=== PATIENT | female | born 1970 | race Two or more races ===

== ENCOUNTER 2016-07-23 13:48 | Observation (INO) | payer BC ==
[~2016-07-23 13:48] MED LIST: ROCURONIUM BROMIDE INJ 50 MG/5 ML VIAL IV ONE; SUCCINYLCHOLINE CHLORIDE INJ 200 MG/10 ML VIAL ONE
[2016-07-23] MEDS ORDERED: ONDANSETRON 4 MG TAB.RAPDIS PO ONE (14:13)
[2016-07-23] MEDS ORDERED: OXYCODONE-ACETAMINOPHEN 5-325 MG TABLET PO ONE (14:13)
--- NOTE | 2016-07-23 14:13 | ER Document Report ---
ED Medical Screen (RME) - General Stated Complaint: BACK PAIN Notes: 46 yo female c/o lower back pain since last night. + hx/o gallbladder diskinesia. + nausea. feels like pain is related to gallbladder. TRAVEL OUTSIDE OF THE [place] IN LAST 30 DAYS: No - Related Data Allergies/Adverse Reactions: prochlorperazine edisylate [From Compazine] Allergy (Severe, Verified 07/21/13 10:23) prochlorperazine maleate [From Compazine] Allergy (Severe, Verified 07/21/13 10: 23) Past Medical History Pulmonary Medical History: Reports: Hx Asthma Past Surgical History: Reports: Hx Appendectomy, Hx Section - Immunizations Hx Diphtheria, Pertussis, Tetanus Vaccination: Yes - 07/13/2007 Physical Exam - Vital signs Vitals: Temp Pulse Resp BP Pulse Ox 97.9 F 74 16 122/73 100 07/23/16 14:09 07/23/16 14:09 07/23/16 14:09 07/23/16 14:09 07/23/16 14:09 Course - Vital Signs Vital signs: Temp Pulse Resp BP Pulse Ox 97.9 F 74 16 122/73 100 07/23/16 14:09 07/23/16 14:09 07/23/16 14:09 07/23/16 14:09 07/23/16 14:09
[2016-07-23 14:49] LABS: ABSOLUTE EOSINOPHILS # (AUTO) 0.1 10^3/uL (0.0-0.6); ABSOLUTE MONOCYTES (AUTO) 0.6 10^3/uL (0.1-1.4); EOSINOPHILS % (AUTO) 1.6 % (0-6); HEMOGLOBIN 12.4 g/dL (12.0-15.5); RED CELL DISTRIBUTION WIDTH 13.7 % (11.5-14.0); SEGMENTED NEUTROPHILS % (AUTO) 48.5 % (42-78)
[2016-07-23 14:55] LABS: AMORPHOUS SEDIMENT,URINE TRACE /HPF; APPEARANCE,URINE CLOUDY; BILIRUBIN,URINE NEGATIVE (NEGATIVE); GLUCOSE, URINE NEGATIVE (NEGATIVE); KETONES,URINE NEGATIVE (NEGATIVE); LEUKOCYTE ESTERASE,URINE NEGATIVE (NEGATIVE); NITRITE,URINE NEGATIVE (NEGATIVE); PROTEIN,URINE NEGATIVE (NEGATIVE); URINE SPECIFIC GRAVITY 1.024; UROBILINOGEN,URINE NEGATIVE mg/dL (<2.0)
[2016-07-23 14:58] LABS: ABSOLUTE LYMPHOCYTES (AUTO) 2.9 10^3/uL (0.5-4.7); ABSOLUTE NEUT (AUTO) 3.4 10^3/uL (1.7-8.2); BASOPHILS % (AUTO) 0.5 % (0-2); HEMATOCRIT 37.1 % (36.0-47.0); HGB HCT DIFFERENCE 0.1; LYMPHOCYTES % (AUTO) 41.4 % (13-45); MEAN CORPUSCULAR HEMOGLOBIN 29.1 pg (27.0-33.4); MEAN CORPUSCULAR HGB CONC 33.5 g/dL (32.0-36.0); MEAN CORPUSCULAR VOLUME 87 fl (80-97); RED BLOOD COUNT 4.27 10^6/uL (3.72-5.28)
[2016-07-23 15:00] LABS: ALANINE AMINOTRANSFERASE 21 U/L (9-52); ALBUMIN 3.6 g/dL (3.5-5.0); ALKALINE PHOSPHATASE 85 U/L (38-126); ANION GAP 10 (5-19); ASPARTATE AMINO TRANSFERASE 21 U/L (14-36); BILIRUBIN,TOTAL 0.2 mg/dL (0.2-1.3); BLOOD UREA NITROGEN 11 mg/dL (7-20); CALCIUM 9.1 mg/dL (8.4-10.2); CARBON DIOXIDE 28 mmol/L (22-30); CHLORIDE 104 mmol/L (98-107); CREATININE RESULT 0.74 mg/dL (0.52-1.25); GLUCOSE 103 mg/dL (75-110); LIPASE 177.2 U/L (23-300); POTASSIUM 3.9 mmol/L (3.6-5.0); SODIUM 142.2 mmol/L (137-145); TOTAL PROTEIN 6.9 g/dL (6.3-8.2)
--- NOTE | 2016-07-23 15:55 | ER Document Report ---
ED General - General Chief Complaint: Back Pain Stated Complaint: BACK PAIN Time seen by provider: 15:52 Notes: This is a 46-year-old female with a history of IBS that presents today with a 3 month history of right-sided abdominal pain with radiation to the back. She states that on 06/24/2016 she was diagnosed with biliary dyskinesis from a HIDA scan. Ejection fraction was 3.5%. She has an appointment scheduled this coming Thursday on the for a cholecystectomy. Admits to nausea denies vomiting fever chills headache. Pain is a dull cramp that is constant 10 out of 10 and is worse after meals. She states that the pain has been getting worse. TRAVEL OUTSIDE OF THE [place] IN LAST 30 DAYS: No - Related Data Allergies/Adverse Reactions: prochlorperazine edisylate [From Compazine] Allergy (Severe, Verified 07/23/16 14:13) prochlorperazine maleate [From Compazine] Allergy (Severe, Verified 07/23/16 14: 13) Home Medications: Current Home Medications Etonogestrel/Ethinyl Estradiol [Nuvaring Vaginal Ring] 1 vag ring PV Q28D [History] Hyoscyamine Sulfate [Hyoscyamine Sulfate ER] 0.375 mg PO Q12 07/23/16 [History] Ranitidine HCl [Zantac 75 mg Tablet] 75 mg PO DAILYP PRN 07/23/16 [History] Past Medical History - General Information source: Patient - Social History Smoking Status: Unknown if Ever Smoked Family History: Reviewed & Not Pertinent Patient has suicidal ideation: No Patient has homicidal ideation: No Pulmonary Medical History: Reports: Hx Asthma Renal/ Medical History: Denies: Hx Peritoneal Dialysis Past Surgical History: Reports: Hx Appendectomy, Hx Section - Immunizations Hx Diphtheria, Pertussis, Tetanus Vaccination: Yes - 07/13/2007 Review of Systems - Review of Systems Constitutional: denies: Chills, Fever EENT: No symptoms reported Cardiovascular: denies: Chest pain, Palpitations Respiratory: denies: Hurts to breathe Gastrointestinal: See HPI Genitourinary: denies: Burning, Dysuria Musculoskeletal: No symptoms reported Skin: No symptoms reported Hematologic/Lymphatic: No symptoms reported Neurological/Psychological: No symptoms reported Physical Exam - Vital signs Vitals: Temp Pulse Resp BP Pulse Ox 97.9 F 74 16 122/73 100 07/23/16 14:09 07/23/16 14:09 07/23/16 14:09 07/23/16 14:09 07/23/16 14:09 - General General appearance: Appears well, Alert In distress: Mild - HEENT Head: Normocephalic, Atraumatic Eyes: Normal Conjunctiva: Normal. No: Icteric - Respiratory Respiratory status: No respiratory distress Breath sounds: Normal. No: Rales, Rhonchi, Stridor, Wheezing - Cardiovascular Rhythm: Regular Heart sounds: Normal auscultation - Abdominal Inspection: Normal Distension: No distension Bowel sounds: Normal Tenderness: Tender - Right upper quadrant and right flank to moderate palpation - Back Back: No: CVA tenderness - Extremities General upper extremity: Normal inspection, Normal ROM General lower extremity: Normal inspection, Normal ROM - Neurological Cognition: Normal. No: Confused - Psychological Associated symptoms: Normal affect, Normal mood - Skin Skin Temperature: Warm Skin Moisture: Dry Skin Color: Normal Course - Re-evaluation Re-evalutation: 07/23/16 16:52 Dr. Whitney was consulted. Surgery was advised. I spoke with the patient, and gave her multiple opportunities to ask questions. - Vital Signs Vital signs: Temp Pulse Resp BP Pulse Ox 97.3 F 80 16 118/72 96 07/23/16 22:15 07/23/16 22:15 07/23/16 22:15 07/23/16 22:15 07/23/16 22:15 - Laboratory Result Diagrams: 07/23/16 14:18 07/23/16 14:18 Discharge - Discharge Clinical Impression: Gallbladder attack Condition: Stable Disposition: ADMITTED INPATIENT Admitting Provider: Surgicalist Unit Admitted: Surgical Floor
[2016-07-23] MEDS ORDERED: RINGERS SOLUTION,LACTATED 1,000 ML IV PRN ×2 (17:56→21:04)
[2016-07-23] MEDS ORDERED: CEFAZOLIN INJ 1 GM VIAL ONE (17:59)
[2016-07-23] MEDS ORDERED: CEFAZOLIN 2 GM/D5W RTU 2 GM/50 ML RTUPB IV ONE (18:30)
[2016-07-23] MEDS ORDERED: FENTANYL CITRATE INJ/PF 100 MCG/2 ML AMPUL ONE ×2 (18:34→20:32)
[2016-07-23] MEDS ORDERED: PROPOFOL INJ 200 MG/20 ML VIAL IV ONE (18:35)
[2016-07-23] MEDS ORDERED: MORPHINE SULFATE 10 MG/ML INJ ONE (18:35)
[2016-07-23] MEDS ORDERED: DEXAMETHASONE SOD PHOSPHATE INJ 4 MG/1 ML VIAL ONE (18:35)
[2016-07-23] MEDS ORDERED: MIDAZOLAM 2 MG/2 ML INJ ONE (18:35)
[2016-07-23] MEDS ORDERED: ONDANSETRON HCL INJ/PF 4 MG/2 ML SDV ONE (18:35)
[2016-07-23] MEDS ORDERED: LIDOCAINE 1% INJ-PF (10 MG/ML) 30 ML SDV ONE (18:41)
[2016-07-23] MEDS ORDERED: BUPIVACAINE HCL 0.25% /EPINEPHRINE INJ/PF 30 ML SDV ONE (18:41)
--- NOTE | 2016-07-23 18:47 | PDOC H&P ---
History of Present Illness Admission Date/PCP: 07/23/16 17:50 CARMEN CISNEROS History of Present Illness: NICOLA HENRY is a 46 year old female, originally from [place], who presents with severe right upper quadrant pain. Her first bout was 2.5 months ago. She awoke in the middle the night to 10/10 right upper quadrant pain. The pain was sharp and burning. The pain was not accompanied by other symptoms. The pain decreased in severity. She visited her primary care office where gallbladder disease was suspected. An ultrasound was done at an outside institution which was inconclusive. The patient continued to experience symptoms over the next several weeks. She had more bouts and never completely attained relief. She was sent for HIDA scan on 06/24/2016. HIDA scan showed an ejection fraction of 3%. Biliary dyskinesia was diagnosed. She was given referral to see a surgeon on 07/29/2016, this coming week. However, she continued to have increasingly severe bouts. She now reports that almost every time she eats, and sometimes even drinks water, she will have an exacerbation of her baseline right upper quadrant pain. The exacerbation will be 10/10, burning. The pain radiates to her back. The pain extends towards her epigastrium. She recently has been unable sleep on her left side. Her baseline bowel pattern is borderline constipation, but recently she's had diarrhea. She has experienced heartburn and IBS in the past but describes this pain and constellation of symptoms as different from her heartburn and IBS. She has tried Zantac and Tylenol without relief. Review of systems is positive for leg swelling during a trip to [place] and for several months afterwards, lasting from September until April 2016. She also reports anxiety, mostly related to her increasing right upper quadrant pain. Past Medical History Pulmonary Medical History: Reports: Asthma, Bronchitis, Pneumonia Endocrine Medical History: Reports: Other - Prediabetic GI Medical History: Reports: Gastroesophageal Reflux Disease, Peptic Ulcer Disease - 2000, Other - IBS Past Surgical History Past Surgical History: Reports: Appendectomy, Section Social History Information Source: Patient Lives with: Family Smoking Status: Never Smoker Frequency of Alcohol Use: Rare Hx Recreational Drug Use: No Drugs: None Hx Prescription Drug Abuse: No Family History Family History: DM, Hyperlipidemia, Hypertension, Malignancy Parental Family History Reviewed: Yes Children Family History Reviewed: Yes Sibling(s) Family History Reviewed.: Yes Medication/Allergy Home Medications: Etonogestrel/Ethinyl Estradiol [Nuvaring Vaginal Ring] 1 vag ring PV Q28D Hyoscyamine Sulfate [Hyoscyamine Sulfate ER] 0.375 mg PO Q12 07/23/16 Ranitidine HCl [Zantac 75 mg Tablet] 75 mg PO DAILYP PRN 07/23/16 Allergies/Adverse Reactions: prochlorperazine edisylate [From Compazine] Allergy (Severe, Verified 07/23/16 14:13) prochlorperazine maleate [From Compazine] Allergy (Severe, Verified 07/23/16 14: 13) Review of Systems All systems: reviewed and no additional remarkable complaints except as stated Physical Exam Vital Signs: Temp Pulse Resp BP Pulse Ox 98.6 F 81 18 122/72 99 07/23/16 18:11 07/23/16 18:11 07/23/16 18:11 07/23/16 18:11 07/23/16 18:11 General appearance: PRESENT: no acute distress Head exam: PRESENT: normocephalic Eye exam: PRESENT: EOMI Mouth exam: PRESENT: neck supple Neck exam: ABSENT: JVD, lymphadenopathy, tenderness, thyromegaly Respiratory exam: PRESENT: clear to auscultation renu Cardiovascular exam: PRESENT: RRR GI/Abdominal exam: PRESENT: Espinoza's sign, soft, tenderness. ABSENT: distended , guarding, hernia, rebound Extremities exam: ABSENT: pedal edema Neurological exam: PRESENT: alert, oriented to person, oriented to place, oriented to time, oriented to situation Psychiatric exam: PRESENT: appropriate affect, normal mood Skin exam: ABSENT: jaundice, rash Results Laboratory Results: WBC 7, hemoglobin 12.4, platelets 209. Sodium 142, potassium 3.9, chloride 104 , bicarbonate 28, BUN 11, creatinine 0.74, glucose 103. CMP normal. Lipase within normal limits. Impressions: Reviewed her HIDA scan from 06/24/2017 at [facility]. Ejection fraction 3%. Assessment & Plan - Diagnosis (1) Biliary dyskinesia Is this a current diagnosis for this admission?: YesPlan: We discussed laparoscopic cholecystectomy with cholangiogram in detail. Questions were answered. We discussed the risks, benefits and alternatives including , heart attack, stroke, blood clots in the legs, blood clots in lungs, pneumonia, bleeding, infection, hernia, bile leak, failure of symptoms to resolve, long-term diarrhea, damage to surrounding structures such as bladder , bowels, blood vessels or bile duct resulting in serious long-term health issues. We discussed the possibility of retained stone with need for further procedure such as ERCP. Understands and wishes to proceed. (2) IBS (irritable bowel syndrome) Qualifiers: Irritable bowel syndrome type: with both diarrhea and constipation Qualified Code(s): K58.2 - Mixed irritable bowel syndrome Is this a current diagnosis for this admission?: Yes
[2016-07-23] MEDS ORDERED: DIPHENHYDRAMINE HCL 50 MG/ML VIAL ONE (19:12)
[2016-07-23] MEDS ORDERED: LIDOCAINE 1% INJ-PF (10 MG/ML) 30 ML SDV INJ ONE (19:20)
[2016-07-23] MEDS ORDERED: BUPIVACAINE HCL 0.25% /EPINEPHRINE INJ/PF 30 ML SDV INJ ONE (19:21)
[2016-07-23] MEDS ORDERED: FENTANYL CITRATE INJ/PF 100 MCG/2 ML AMPUL IV PRN ×3 (20:23)
[2016-07-23] MEDS ORDERED: DIPHENHYDRAMINE HCL 50 MG/ML VIAL IV PRN (20:23)
[2016-07-23] MEDS ORDERED: ONDANSETRON HCL INJ/PF 4 MG/2 ML SDV IV PRN (20:59)
--- NOTE | 2016-07-23 20:59 | Operative Report ---
Operative Report DATE OF SURGERY: 07/23/16 PREOPERATIVE DIAGNOSIS: Biliary dyskinesia POSTOPERATIVE DIAGNOSIS: Biliary dyskinesia OPERATION: Laparoscopic cholecystectomy with cholangiogram SURGEON: LOUANN ELLIS ANESTHESIA: GA TISSUE REMOVED OR ALTERED: Gallbladder COMPLICATIONS: None noted ESTIMATED BLOOD LOSS: minimal PROCEDURE: The patient was brought to the operative suite and placed supine on the OR table. Timeout was performed. Antibiotics were administered. Padding and positioning was appropriate. The patient was induced, intubated and maintained on general endotracheal anesthesia throughout the procedure. Patient was prepped and draped in the normal sterile fashion. The skin above the umbilicus was infiltrated with local anesthetic. A 5 mm incision was made. A [place] and [place] were used to dissect down to the level of the fascia, grasped the fascia and elevate it. The Veress needle was placed. Satisfactory water drop test was performed. Low flow insufflation was connected and yielded low opening pressure. Insufflation was advanced to high flow and pneumoperitoneum of 15 mmHg was obtained and maintained with procedure. Trocar and camera were placed through this incision confirming entry into the abdominal cavity without incident. Next the 11 mm epigastric and the two 5 mm right subcostal trochars were placed in the normal location and fashion under direct visualization, after infiltration with local anesthetic. Instruments were introduced. The abdominal cavity was surveyed. There were minimal omental adhesions just inferior to the umbilicus. There were minimal adhesions to the gallbladder which were taken down with a combination of electrocautery and blunt dissection. The fundus of the gallbladder was elevated over the liver edge. The dissection the gallbladder began on the lateral aspect. Dissection continued down to the triangle of Calot. The cystic artery and the cystic duct were dissected out and seen to be clearly entering the gallbladder with no obscuration. The cystic duct was clipped adjacent to the gallbladder. A ductotomy was made. A cholangiocatheter was inserted. A cholangiogram was performed showing good filling of the biliary tree proximally and distally on down into the duodenum with no filling defects. The cholangiocatheter was removed. The cystic duct was clipped 3 times proximally and divided between clips. The cystic artery was clipped twice proximally and once distally consult gallbladder and divided between the clips. The gallbladder was removed from the gallbladder fossa with hook electrocautery. It was placed in an Endo Catch bag and removed through the epigastric trocar site. It was sent to pathology for further analysis. The field was irrigated and suctioned. The field was intact with no leakage of bile or blood. Clips were in place. The abdominal cavity was surveyed and was unremarkable. Trocar sites were infiltrated with more local anesthetic. Pneumoperitoneum was released. Trochars were removed. Incisions were closed at the level of the skin with 4-0 Monocryl. The closed incisions were dressed Dermabond glue. All lap needle sponge counts were correct. The patient tolerated procedure well and was taken recovery in stable condition.
[2016-07-23] MEDS ORDERED: ENOXAPARIN SODIUM INJ 40 MG/0.4 ML DISP.SYRIN SUBCUT ONE (21:30)
[2016-07-24] MEDS: HYDROCODONE/ACETAMINOPHEN 5-325 MG TABLET PO PRN ×3 (05:19→15:02)
[2016-07-24] MEDS: ENOXAPARIN SODIUM INJ 40 MG/0.4 ML DISP.SYRIN SUBCUT SCH (08:27)
[2016-07-24] MEDS: DOCUSATE SODIUM 100 MG CAPSULE PO SCH ×2 (09:31→17:09)
--- NOTE | 2016-07-24 10:15 | PDOC PROGRESS REPORT ---
Subjective Progress Note for:: 07/24/16 Subjective:: Still having right upper quadrant abdominal pain. Not relieved with by mouth pain medications no nausea or vomiting. Tolerated diet. Physical Exam Vital Signs: Temp Pulse Resp BP Pulse Ox 98.2 F 62 16 106/62 99 07/24/16 07:31 07/24/16 07:31 07/24/16 07:31 07/24/16 07:31 07/24/16 07:31 Intake & Output 07/23/16 07/24/16 07/25/16 06:59 06:59 06:59 Intake Total 530 Output Total 800 Balance -270 Weight 86.2 kg General appearance: PRESENT: no acute distress Respiratory exam: PRESENT: clear to auscultation renu Cardiovascular exam: PRESENT: RRR GI/Abdominal exam: PRESENT: other - Soft, nondistended, wounds clean dry and intact. Focal tenderness in the right upper quadrant without peritoneal signs. Results Impressions: Cholangiogram 07/23/16 00:00 IMPRESSION: INTRAOPERATIVE CHOLANGIOGRAM. Fluoroscopy 07/23/16 00:00 IMPRESSION: INTRAOPERATIVE CHOLANGIOGRAM. Assessment & Plan - Diagnosis (1) Biliary dyskinesia Is this a current diagnosis for this admission?: YesPlan: Status post laparoscopic cholecystectomy the patient still has right upper quadrant abdominal pain and tenderness. Will place her on morphine for pain control. Will check the laboratory studies. We'll keep her in the hospital until she is feeling better.
[2016-07-24] MEDS ORDERED: MORPHINE SULFATE 10 MG/ML INJ IV PRN (10:17)
[2016-07-24 11:38] LABS: HEMATOCRIT 34.9 % (36.0-47.0); HEMOGLOBIN 11.6 g/dL (12.0-15.5); HGB HCT DIFFERENCE -0.1; MEAN CORPUSCULAR HEMOGLOBIN 29.1 pg (27.0-33.4); MEAN CORPUSCULAR HGB CONC 33.1 g/dL (32.0-36.0); MEAN CORPUSCULAR VOLUME 88 fl (80-97); RED BLOOD COUNT 3.97 10^6/uL (3.72-5.28); RED CELL DISTRIBUTION WIDTH 13.6 % (11.5-14.0); WHITE BLOOD COUNT 9.2 10^3/uL (4.0-10.5)
[2016-07-24 11:50] LABS: ALANINE AMINOTRANSFERASE 39 U/L (9-52); ALBUMIN 3.3 g/dL (3.5-5.0); ALKALINE PHOSPHATASE 76 U/L (38-126); ANION GAP 8 (5-19); ASPARTATE AMINO TRANSFERASE 50 U/L (14-36); BILIRUBIN,TOTAL 0.2 mg/dL (0.2-1.3); BLOOD UREA NITROGEN 9 mg/dL (7-20); CALCIUM 8.7 mg/dL (8.4-10.2); CARBON DIOXIDE 28 mmol/L (22-30); CHLORIDE 105 mmol/L (98-107); CREATININE RESULT 0.69 mg/dL (0.52-1.25); GLUCOSE 91 mg/dL (75-110); LIPASE 88.3 U/L (23-300); POTASSIUM 3.6 mmol/L (3.6-5.0); SODIUM 141.3 mmol/L (137-145); TOTAL PROTEIN 6.3 g/dL (6.3-8.2)
[2016-07-24] MEDS ORDERED: DIPHENHYDRAMINE HCL 50 MG CAPSULE PO PRN (13:50)
[2016-07-25] MEDS: HYDROCODONE/ACETAMINOPHEN 5-325 MG TABLET PO PRN (05:16)
[2016-07-25] MEDS: ENOXAPARIN SODIUM INJ 40 MG/0.4 ML DISP.SYRIN SUBCUT SCH (08:17)
[2016-07-25] MEDS: DOCUSATE SODIUM 100 MG CAPSULE PO SCH (12:03)
[2016-07-25 13:09] VITALS: BP 111/58
--- NOTE | 2016-07-25 18:43 | DISCHARGE SUMMARY E ---
Discharge Summary NAME: NICOLA HENRY : 1970 AGE: 46Y ADMITTED: 07/23/2016 DISCHARGED: 07/25/2016 DISCHARGE DIAGNOSIS: Status post laparoscopic cholecystectomy for cholelithiasis causing biliary colic. HISTORY AND HOSPITAL COURSE: This 46-year-old female presented to the emergency room with abdominal pain and was found to have right upper quadrant tenderness. The patient underwent an ultrasound which revealed cholelithiasis with biliary colic. The patient was admitted to the hospital and then underwent laparoscopic cholecystectomy on 07/23/2016. The patient's postop course was uneventful. She did continue to have right upper quadrant pain postop that prevented her discharge at this time. However, her laboratory data was within normal limits and her abdominal pain continued to improve. On 07/25/2016, the patient was afebrile and vital signs were stable. The patient has at this time no right upper quadrant tenderness whatsoever and is doing quite well. DISPOSITION: The patient is now discharged home and is to follow up with [facility] as an outpatient in 4 days. DICTATING PHYSICIAN: KARMEN SHI M.D. [id number] PHY#: [id number] ID: [id number] JOB#: [id number] ACCT: [id number] cc:Mae BABIN FNP >
== END 2016-07-25 16:46 | disposition home or self-care (01) ==
LOC: ER 13:48 → EH 17:50 → UNDOADMOB 17:50 → EH 20:59 → 4S 21:15 → EH 21:15
PROC: 0FT44ZZ Resection of Gallbladder, Percutaneous Endoscopic Approach (ICD-10-PCS; principal; 2016-07-23 19:00)
DX: K80.50 Calculus of bile duct without cholangitis or cholecystitis without obstruction (principal); K82.8 Other specified diseases of gallbladder; J45.909 Unspecified asthma, uncomplicated; R73.03 Prediabetes; K21.9 Gastro-esophageal reflux disease without esophagitis; Z83.3 Family history of diabetes mellitus; Z83.42 Family history of familial hypercholesterolemia; Z82.49 Family history of ischemic heart disease and other diseases of the circulatory system; Z80.9 Family history of malignant neoplasm, unspecified
CPT/HCPCS: 99285; 96365; 96368; 36415 ×2; 83690 ×2; 85025; 85027; 80053 ×2; 81001; 88304 ×2; 74300; 94799; 47563; G0378 ×4; Q9967; J2250; J3490 ×3; J1100; J1200; S0119; J3010; J2270 ×2; J1650 ×3; J0330; J2405; J7120; J2704; J0690; 790

== ENCOUNTER 2017-01-27 17:55 | Emergency (ER) | payer BC ==
--- NOTE | 2017-01-27 18:43 | ER Document Report ---
ED Medical Screen (RME) - General Chief Complaint: Leg Pain Stated Complaint: LEFT LEG AND ANKLE PAIN, SWELLING Time Seen by Provider: 01/27/17 18:40 Information source: Patient Notes: Bilateral leg pain and swelling, left much greater than right. She states for around 1 week. She states also some intermittent chest pain with shortness of breath. She denies any recent trips or travel. She denies any nausea, vomiting , or fevers. Denies any weakness or numbness of her legs. Patient does state that she started to work at around 2 weeks ago. TRAVEL OUTSIDE OF THE [place] IN LAST 30 DAYS: No - Related Data Allergies/Adverse Reactions: prochlorperazine edisylate [From Compazine] Allergy (Severe, Verified 01/27/17 18:12) prochlorperazine maleate [From Compazine] Allergy (Severe, Verified 01/27/17 18: 12) Past Medical History Pulmonary Medical History: Reports: Hx Asthma, Hx Bronchitis, Hx Pneumonia Renal/ Medical History: Denies: Hx Peritoneal Dialysis GI Medical History: Reports: Hx Gastroesophageal Reflux Disease Past Surgical History: Reports: Hx Appendectomy, Hx Section - Immunizations Hx Diphtheria, Pertussis, Tetanus Vaccination: Yes - 07/13/2007 Physical Exam - Vital signs Vitals: Temp Pulse Resp BP Pulse Ox 98.1 F 89 15 133/85 H 98 01/27/17 18:12 01/27/17 18:12 01/27/17 18:12 01/27/17 18:12 01/27/17 18:12 Course - Vital Signs Vital signs: Temp Pulse Resp BP Pulse Ox 98.1 F 89 15 133/85 H 98 01/27/17 18:12 01/27/17 18:12 01/27/17 18:12 01/27/17 18:12 01/27/17 18:12
[2017-01-27 19:14] LABS: ABSOLUTE EOSINOPHILS # (AUTO) 0.1 10^3/uL (0.0-0.6); ABSOLUTE LYMPHOCYTES (AUTO) 2.4 10^3/uL (0.5-4.7); ABSOLUTE MONOCYTES (AUTO) 0.7 10^3/uL (0.1-1.4); ABSOLUTE NEUT (AUTO) 4.3 10^3/uL (1.7-8.2); BASOPHILS % (AUTO) 0.5 % (0-2); EOSINOPHILS % (AUTO) 1.6 % (0-6); HEMOGLOBIN 12.2 g/dL (12.0-15.5); HGB HCT DIFFERENCE -1.4; LYMPHOCYTES % (AUTO) 31.6 % (13-45); MEAN CORPUSCULAR HGB CONC 32.2 g/dL (32.0-36.0); MEAN CORPUSCULAR VOLUME 90 fl (80-97); MONOCYTES % (AUTO) 9.6 % (3-13); RED BLOOD COUNT 4.22 10^6/uL (3.72-5.28); RED CELL DISTRIBUTION WIDTH 13.7 % (11.5-14.0); SEGMENTED NEUTROPHILS % (AUTO) 56.7 % (42-78); WHITE BLOOD COUNT 7.5 10^3/uL (4.0-10.5)
--- NOTE | 2017-01-27 19:20 | RADIOLOGY REPORT (SQ) ---
EXAM DESCRIPTION: CHEST PA/LAT COMPLETED DATE/TIME: 01/27/2017 7:04 pm REASON FOR STUDY: Chest pain COMPARISON: September 2010 EXAM PARAMETERS: NUMBER OF VIEWS: two views TECHNIQUE: Digital Frontal and Lateral radiographic views of the chest acquired. RADIATION DOSE: NA LIMITATIONS: none FINDINGS: LUNGS AND PLEURA: No opacities, masses or pneumothorax. No pleural effusion. MEDIASTINUM AND HILAR STRUCTURES: No masses or contour abnormalities. HEART AND VASCULAR STRUCTURES: Heart normal size. No evidence for failure. BONES: No acute findings. HARDWARE: None in the chest. OTHER: No other significant finding. IMPRESSION: NO SIGNIFICANT RADIOGRAPHIC FINDING IN THE CHEST. TECHNICAL DOCUMENTATION: JOB ID: [id number]- All Rights Reserved
[2017-01-27 19:21] LABS: APPEARANCE,URINE SLIGHTLY-CLOUDY; BILIRUBIN,URINE NEGATIVE (NEGATIVE); GLUCOSE, URINE NEGATIVE (NEGATIVE); KETONES,URINE NEGATIVE (NEGATIVE); LEUKOCYTE ESTERASE,URINE NEGATIVE (NEGATIVE); NITRITE,URINE NEGATIVE (NEGATIVE); PROTEIN,URINE NEGATIVE (NEGATIVE); UROBILINOGEN,URINE NEGATIVE mg/dL (<2.0)
[2017-01-27 19:36] LABS: ALANINE AMINOTRANSFERASE 22 U/L (9-52); ALBUMIN 3.7 g/dL (3.5-5.0); ALKALINE PHOSPHATASE 101 U/L (38-126); ANION GAP 9 (5-19); ASPARTATE AMINO TRANSFERASE 19 U/L (14-36); BILIRUBIN,DIRECT 0.2 mg/dL (0.0-0.4); BILIRUBIN,TOTAL 0.3 mg/dL (0.2-1.3); BLOOD UREA NITROGEN 10 mg/dL (7-20); CALCIUM 8.6 mg/dL (8.4-10.2); CARBON DIOXIDE 26 mmol/L (22-30); CHLORIDE 105 mmol/L (98-107); CREATININE RESULT 0.66 mg/dL (0.52-1.25); GLUCOSE 90 mg/dL (75-110); POTASSIUM 4.1 mmol/L (3.6-5.0); SODIUM 139.5 mmol/L (137-145); TOTAL PROTEIN 7.2 g/dL (6.3-8.2)
[2017-01-27 19:47] LABS: TROPONIN I < 0.012 ng/mL
--- NOTE | 2017-01-27 21:25 | ER Document Report ---
ED Psych Disorder / Suicide - General Chief Complaint: Leg Pain Stated Complaint: LEFT LEG AND ANKLE PAIN, SWELLING Time Seen by Provider: 01/27/17 18:40 TRAVEL OUTSIDE OF THE [place] IN LAST 30 DAYS: No - Related Data Allergies/Adverse Reactions: prochlorperazine edisylate [From Compazine] Allergy (Severe, Verified 01/27/17 18:12) prochlorperazine maleate [From Compazine] Allergy (Severe, Verified 01/27/17 18: 12) Past Medical History - General Information source: Patient - Social History Smoking Status: Never Smoker Frequency of alcohol use: Occasional Drug Abuse: None Family History: Reviewed & Not Pertinent Patient has suicidal ideation: No Patient has homicidal ideation: No Pulmonary Medical History: Reports: Hx Asthma, Hx Bronchitis, Hx Pneumonia Renal/ Medical History: Denies: Hx Peritoneal Dialysis GI Medical History: Reports: Hx Gastroesophageal Reflux Disease Past Surgical History: Reports: Hx Appendectomy, Hx Section - Immunizations Hx Diphtheria, Pertussis, Tetanus Vaccination: Yes - 07/13/2007 Physical Exam - Vital signs Vitals: Temp Pulse Resp BP Pulse Ox 98.1 F 89 15 133/85 H 98 01/27/17 18:12 01/27/17 18:12 01/27/17 18:12 01/27/17 18:12 01/27/17 18:12 Course - Vital Signs Vital signs: Temp Pulse Resp BP Pulse Ox 98.1 F 89 15 133/85 H 98 01/27/17 18:12 01/27/17 18:12 01/27/17 18:12 01/27/17 18:12 01/27/17 18:12 - Laboratory Result Diagrams: 01/27/17 18:58 01/27/17 18:58 Laboratory results interpreted by me: 01/27/17 18:58 Urine Blood SMALL H
--- NOTE | 2017-01-27 21:30 | ER Document Report ---
ED Extremity Problem, Lower - General Mode of Arrival: Ambulatory Information source: Patient TRAVEL OUTSIDE OF THE [place] IN LAST 30 DAYS: No <JOSE CARVER - Last Filed: 01/27/17 22:09> <JENNA AWAN - Last Filed: 01/28/17 00:00> - General Chief Complaint: Leg Pain Stated Complaint: LEFT LEG AND ANKLE PAIN, SWELLING Time Seen by Provider: 01/27/17 18:40 Notes: Patient is a 46-year-old female who presents to the emergency department today with complaints of left calf and ankle swelling and pain. Patient states that she "tried to exercise last week" but she does not remember any injury or trauma to the leg. Patient states she has had something similar to this in the past and she was told it was "heat edema". (JOSE CARVER) - Related Data Allergies/Adverse Reactions: prochlorperazine edisylate [From Compazine] Allergy (Severe, Verified 01/27/17 18:12) prochlorperazine maleate [From Compazine] Allergy (Severe, Verified 01/27/17 18: 12) Past Medical History - General Information source: Patient - Social History Smoking Status: Never Smoker Cigarette use (# per day): No Frequency of alcohol use: Occasional Drug Abuse: None Lives with: Family Family History: Reviewed & Not Pertinent Patient has suicidal ideation: No Patient has homicidal ideation: No Pulmonary Medical History: Reports: Hx Asthma, Hx Bronchitis, Hx Pneumonia GI Medical History: Reports: Hx Gastroesophageal Reflux Disease Past Surgical History: Reports: Hx Appendectomy, Hx Section - Immunizations Hx Diphtheria, Pertussis, Tetanus Vaccination: Yes - 07/13/2007 <JOSE CAVRER - Last Filed: 01/27/17 22:09> Review of Systems - Review of Systems Constitutional: No symptoms reported EENT: No symptoms reported Cardiovascular: No symptoms reported Respiratory: No symptoms reported Gastrointestinal: No symptoms reported Genitourinary: No symptoms reported Female Genitourinary: No symptoms reported Musculoskeletal: See HPI, Leg swelling - left/ankle Skin: No symptoms reported Hematologic/Lymphatic: No symptoms reported Neurological/Psychological: No symptoms reported -: Yes All other systems reviewed and negative <JOSE CARVER - Last Filed: 01/27/17 22:09> Physical Exam <JOSE CARVER - Last Filed: 01/27/17 22:09> <JENNA AWAN - Last Filed: 01/28/17 00:00> - Vital signs Vitals: Temp Pulse Resp BP Pulse Ox 98.1 F 89 15 133/85 H 98 01/27/17 18:12 01/27/17 18:12 01/27/17 18:12 01/27/17 18:12 01/27/17 18:12 - Notes Notes: Physical Exam: General: Alert, appears well. HEENT: Normocephalic. Atraumatic. PERRL. Extraocular movements intact. Oropharynx clear. Neck: Supple. Non-tender. Respiratory: No respiratory distress. Clear and equal breath sounds bilaterally. Cardiovascular: Regular rate and rhythm. Abdominal: Normal Inspection. Non-tender. No distension. Normal Bowel Sounds. Back: Non-tender. No deformity or step off. Extremities: Moves all four extremities. Upper extremities: Normal inspection. Normal ROM. Lower extremities: Posterior calf tenderness bilaterally. Pain with range of motion. Left Achilles tenderness with palpation. Neurological: Normal cognition. AAOx4. Normal speech. Psychological: Normal affect. Normal Mood. Skin: Warm. Dry. Normal color. (JOSE CARVER) Course - Laboratory Result Diagrams: 01/27/17 18:58 01/27/17 18:58 <MEHULJOSE - Last Filed: 01/27/17 22:09> - Laboratory Result Diagrams: 01/27/17 18:58 01/27/17 18:58 <JENNA AWAN - Last Filed: 01/28/17 00:00> - Re-evaluation Re-evalutation: 01/27/17 23:59 Patient with normal blood work. No evidence for DVT on imaging. Patient symptoms are consistent with strain/tendinitis. Patient is instructed to wear supportive footwear, take NSAIDs, follow-up with PMD, possibly do physical therapy. Stable for discharge. Return if any worsening or concerning symptoms. , The patient is neurovascularly intact at the time of discharge. (JENNA AWAN) - Vital Signs Vital signs: Temp Pulse Resp BP Pulse Ox 98.4 F 79 16 127/75 H 99 01/27/17 21:42 01/27/17 21:42 01/27/17 21:42 01/27/17 21:42 01/27/17 21:42 - Laboratory Laboratory results interpreted by me: 01/27/17 18:58 Urine Blood SMALL H Discharge <JOSE CARVER - Last Filed: 01/27/17 22:09> <JENNA AWAN - Last Filed: 01/28/17 00:00> - Discharge Clinical Impression: Muscle strain, Leg pain, left Condition: Stable Disposition: HOME, SELF-CARE Instructions: Muscle Strain ([facility]), Leg Pain Nonspecific ([facility]) Additional Instructions: Make sure you are wearing supportive footwear. Take Ibuprofen or Naproxen as needed for pain. Please follow-up with your doctor and discuss physical therapy if your pain does not improve. Scribe Attestation: 01/28/17 00:00 I personally performed the services described in the documentation, reviewed and edited the documentation which was dictated to the scribe in my presence, and it accurately records my words and actions. (JENNA AWAN) Scribe Documentation - Scribe Written by Maryibe:: Rufina Allen, 01/27/2017 2154 acting as scribe for :: Christ <JOSE CARVER - Last Filed: 01/27/17 22:09>
[2017-01-27 21:52] VITALS: BP 127/75
--- NOTE | 2017-01-27 22:03 | EKG REPORT ---
SEVERITY:- NORMAL ECG - SINUS RHYTHM : Confirmed by: Ellie Putnam 27-Jan-2017 22:02:45
--- NOTE | 2017-01-28 07:50 | XCELERA REPORT ---
[address] [address] Lower Extremity Venous Evaluation Name: NICOLA HENRY I Age: 46 yrs Gender: Female : 1970 Patient Status: Emergency Patient Location: ER Study Date: 01/27/2017 08:06 PM Procedure: Color flow and duplex imaging of the veins of the left lower extremity as well as the right Common Femoral vein. Reason For Study: PIT; left leg swelling and pain Ordering Physician: KEO NAVA Performed By: Millicent Ray Right Sided Venous Evaluation The right common femoral vein is fully compressible. Spontaneous and phasic flow is present in the right common femoral vein. Left Sided Venous Evaluation Normal vessel filling wall to wall, compression and augmentation as well as Colour flow down to the infrageniculate veins. Critical Findings Called in to Dr Polo at about 1700. Interpretation Summary No duplex evidence of DVT or obstruction in the left lower extremity nor in the right Common Femoral vein. : KEO NAVA > aXnder Ahumada
== END 2017-01-27 21:42 | disposition home or self-care (01) ==
LOC: ER 17:55
DX: T14.8 Other injury of unspecified body region (principal); X58.XXXA Exposure to other specified factors, initial encounter; M79.662 Pain in left lower leg; M25.572 Pain in left ankle and joints of left foot; M25.472 Effusion, left ankle; J45.909 Unspecified asthma, uncomplicated; Z88.8 Allergy status to other drugs, medicaments and biological substances
CPT/HCPCS: 36415; 71020; 80053; 81001; 81025; 83880; 84484; 85025; 93005; 93010; 93971; 99284

== ENCOUNTER 2018-01-29 17:01 | Emergency (ER) | payer BC ==
[2018-01-29] MEDS ORDERED: HYDROCODONE/ACETAMINOPHEN 5-325 MG TABLET PO ONE (18:14)
[2018-01-29] MEDS ORDERED: ONDANSETRON 4 MG TAB.RAPDIS SL ONE (18:14)
--- NOTE | 2018-01-29 18:15 | ER Document Report ---
ED Medical Screen (RME) - General Chief Complaint: Abdominal Pain Stated Complaint: ABDOMINAL PAIN Time Seen by Provider: 01/29/18 17:05 TRAVEL OUTSIDE OF THE [place] IN LAST 30 DAYS: No - HPI Patient complains to provider of: Abdominal pain Notes: 01/29/18 18:14 Patient is a 47-year-old female sent to the emergency room by primary care provider for periumbilical abdominal pain going on for the, she reports some nausea associated with it as well as constipation but denies any vomiting or obstipation - Related Data Allergies/Adverse Reactions: prochlorperazine edisylate [From Compazine] Allergy (Severe, Verified 01/29/18 17:03) prochlorperazine maleate [From Compazine] Allergy (Severe, Verified 01/29/18 17: 03) Past Medical History Pulmonary Medical History: Reports: Hx Asthma, Hx Bronchitis, Hx Pneumonia Renal/ Medical History: Denies: Hx Peritoneal Dialysis GI Medical History: Reports: Hx Gastroesophageal Reflux Disease Past Surgical History: Reports: Hx Appendectomy, Hx Section - Immunizations Hx Diphtheria, Pertussis, Tetanus Vaccination: Yes - 07/13/2007 Physical Exam - Vital signs Vitals: Temp Pulse Resp BP Pulse Ox 98.5 F 78 20 126/77 H 100 01/29/18 17:35 01/29/18 17:35 01/29/18 17:35 01/29/18 17:35 01/29/18 17:35 Course - Vital Signs Vital signs: Temp Pulse Resp BP Pulse Ox 98.5 F 78 20 126/77 H 100 01/29/18 17:35 01/29/18 17:35 01/29/18 17:35 01/29/18 17:35 01/29/18 17:35 Doctor's Discharge - Discharge Referrals: LUL SOSA PA-C [Primary Care Provider] - Follow up as needed
[2018-01-29 19:24] LABS: APPEARANCE,URINE SLIGHTLY-CLOUDY; BILIRUBIN,URINE NEGATIVE (NEGATIVE); COLOR,URINE YELLOW; GLUCOSE, URINE NEGATIVE (NEGATIVE); KETONES,URINE NEGATIVE (NEGATIVE); LEUKOCYTE ESTERASE,URINE NEGATIVE (NEGATIVE); NITRITE,URINE NEGATIVE (NEGATIVE); PROTEIN,URINE NEGATIVE (NEGATIVE); URINE SPECIFIC GRAVITY 1.021; UROBILINOGEN,URINE NEGATIVE mg/dL (<2.0)
[2018-01-29 19:28] LABS: ABSOLUTE EOSINOPHILS # (AUTO) 0.1 10^3/uL (0.0-0.6); ABSOLUTE LYMPHOCYTES (AUTO) 2.8 10^3/uL (0.5-4.7); ABSOLUTE MONOCYTES (AUTO) 0.8 10^3/uL (0.1-1.4); ABSOLUTE NEUT (AUTO) 3.9 10^3/uL (1.7-8.2); BASOPHILS % (AUTO) 0.4 % (0-2); EOSINOPHILS % (AUTO) 1.4 % (0-6); HEMATOCRIT 41.7 % (36.0-47.0); HEMOGLOBIN 13.6 g/dL (12.0-15.5); LYMPHOCYTES % (AUTO) 36.3 % (13-45); MEAN CORPUSCULAR HEMOGLOBIN 29.3 pg (27.0-33.4); MEAN CORPUSCULAR HGB CONC 32.5 g/dL (32.0-36.0); MEAN CORPUSCULAR VOLUME 90 fl (80-97); MONOCYTES % (AUTO) 11.1 % (3-13); PLATELET COUNT 214 10^3/uL (150-450); RED BLOOD COUNT 4.62 10^6/uL (3.72-5.28); RED CELL DISTRIBUTION WIDTH 13.4 % (11.5-14.0); SEGMENTED NEUTROPHILS % (AUTO) 50.8 % (42-78); TOTAL CELLS COUNTED % (AUTO) 100 %; WHITE BLOOD COUNT 7.6 10^3/uL (4.0-10.5)
[2018-01-29 19:39] LABS: ALANINE AMINOTRANSFERASE 30 U/L (9-52); ALBUMIN 4.4 g/dL (3.5-5.0); ALKALINE PHOSPHATASE 100 U/L (38-126); ANION GAP 12 (5-19); ASPARTATE AMINO TRANSFERASE 23 U/L (14-36); BILIRUBIN,DIRECT 0.2 mg/dL (0.0-0.4); BILIRUBIN,TOTAL 0.4 mg/dL (0.2-1.3); BLOOD UREA NITROGEN 9 mg/dL (7-20); CALCIUM 9.3 mg/dL (8.4-10.2); CARBON DIOXIDE 28 mmol/L (22-30); CHLORIDE 104 mmol/L (98-107); GLUCOSE 68 mg/dL (75-110); LIPASE 138.9 U/L (23-300); POTASSIUM 3.9 mmol/L (3.6-5.0); SODIUM 144.2 mmol/L (137-145); TOTAL PROTEIN 7.6 g/dL (6.3-8.2)
--- NOTE | 2018-01-29 21:26 | ER Document Report ---
ED General - General Chief Complaint: Abdominal Pain Stated Complaint: ABDOMINAL PAIN Time Seen by Provider: 01/29/18 17:05 Notes: Patient is a 47 year old female with a past surgical history of a cholecystectomy and appendectomy who presents with several weeks of umbilical pain. She states that this is mostly located to the upper portion of her umbilicus and is noted to be a dull, throbbing, constant pain worsened by moving or standing. She has tried ibuprofen with minimal improvement of the pain. She denies a history of similar symptoms in the past. She has seen her general doctor regarding this concern, was referred for an ultrasound on Thursday but states that the pain has prevented her from sleeping prompting her to come to the emergency department. She denies any vomiting, fever or constitutional symptoms. TRAVEL OUTSIDE OF THE [place] IN LAST 30 DAYS: No - Related Data Allergies/Adverse Reactions: prochlorperazine edisylate [From iGuiders] Allergy (Severe, Verified 01/29/18 17:03) prochlorperazine maleate [From Kiraxazine] Allergy (Severe, Verified 01/29/18 17: 03) Past Medical History - General Information source: Patient - Social History Smoking Status: Never Smoker Frequency of alcohol use: None Drug Abuse: None Lives with: Family Family History: Reviewed & Not Pertinent Patient has suicidal ideation: No Patient has homicidal ideation: No Pulmonary Medical History: Reports: Hx Asthma, Hx Bronchitis, Hx Pneumonia Renal/ Medical History: Denies: Hx Peritoneal Dialysis GI Medical History: Reports: Hx Gastroesophageal Reflux Disease Past Surgical History: Reports: Hx Appendectomy, Hx Section - Immunizations Hx Diphtheria, Pertussis, Tetanus Vaccination: Yes - 07/13/2007 Review of Systems - Review of Systems Notes: Constitutional: Negative for fever. HENT: Negative for sore throat. Eyes: Negative for visual changes. Cardiovascular: Negative for chest pain. Respiratory: Negative for shortness of breath. Gastrointestinal: Positive for abdominal pain Genitourinary: Negative for dysuria. Musculoskeletal: Negative for back pain. Skin: Negative for rash. Neurological: Negative for headaches, weakness or numbness. 10 point ROS negative except as marked above and in HPI. Physical Exam - Vital signs Vitals: Temp Pulse Resp BP Pulse Ox 98.5 F 78 20 126/77 H 100 01/29/18 17:35 01/29/18 17:35 01/29/18 17:35 01/29/18 17:35 01/29/18 17:35 Interpretation: Normal Notes: PHYSICAL EXAMINATION: GENERAL: Well-appearing, well-nourished and in no acute distress. HEAD: Atraumatic, normocephalic. EYES: Pupils equal round and reactive to light, extraocular movements intact, sclera anicteric, conjunctiva are normal. ENT: nares patent, oropharynx clear without exudates. Moist mucous membranes. NECK: Normal range of motion, supple without lymphadenopathy LUNGS: Breath sounds clear to auscultation bilaterally and equal. No wheezes rales or rhonchi. HEART: Regular rate and rhythm without murmurs ABDOMEN: Soft, tenderness to the superior portion of the umbilicus but no other areas of localized tenderness, normoactive bowel sounds. No guarding, no rebound. No masses appreciated. EXTREMITIES: Normal range of motion, no pitting or edema. No cyanosis. NEUROLOGICAL: No focal neurological deficits. Moves all extremities spontaneously and on command. PSYCH: Normal mood, normal affect. SKIN: Warm, Dry, normal turgor, no rashes or lesions noted. Course - Re-evaluation Re-evalutation: 01/29/18 21:23 Patient presents with approximately 1 month of periumbilical pain no different today but not resolving. The patient does have focal tenderness to the superior aspect of the umbilicus. Patient has had an appendectomy and there is a surgical incision scar to the area I anticipate the patient either has scar tissue versus a fat-containing hernia to the area. The patient stood and pared down I am unable to visualize or palpate a hernia. Labs unremarkable. I do not see an indication for CT abdomen pelvis at this point as her clinical history is not concerning for any acute life-threatening pathology. No change in her diagnosed her symptoms over the last 1 month. I have recommended close follow-up with surgery for further evaluation. The remainder of the labs and history is otherwise benign. She has no additional focal abdominal tenderness. Her only every abdominal tenderness is directly to the superior aspect of her umbilicus. At this time will discharge with return precautions and follow-up recommendations. Verbal discharge instructions given a the bedside and opportunity for questions given. Medication warnings reviewed. Patient is in agreement with this plan and has verbalized understanding of return precautions and the need for primary care follow-up in the next 24-72 hours. - Vital Signs Vital signs: Temp Pulse Resp BP Pulse Ox 98.5 F 89 18 115/70 100 01/29/18 17:35 01/29/18 21:50 01/29/18 21:50 01/29/18 21:50 01/29/18 21:50 - Laboratory Result Diagrams: 01/29/18 19:03 01/29/18 19:03 Laboratory results interpreted by me: 01/29/18 01/29/18 17:35 19:03 Glucose 68 L Urine Blood SMALL H Discharge - Discharge Clinical Impression: Umbilical pain Condition: Good Disposition: HOME, SELF-CARE Additional Instructions: You have been seen in the Emergency Department (ED) for abdominal pain. Your evaluation did not identify a clear cause of your symptoms but was generally reassuring. Your symptoms are likely due to either scar tissue or a fat- containing hernia to the area. For your pain: Take ibuprofen 600 mg and acetaminophen 1000 mg every 6 hours together as needed for pain. He may take tramadol only at night for pain that keeps him awake. Please follow-up with the surgeon included in the paperwork at your earliest ability for further evaluation. Return to the ED if your abdominal pain worsens or fails to improve, you develop bloody vomiting, bloody diarrhea, you are unable to tolerate fluids due to vomiting, fever greater than 101, or other symptoms that concern you. Prescriptions: Tramadol HCl 50 mg PO Q6H PRN #6 tablet PRN Reason: Severe Pain Referrals: LUL SOSA PA-C [Primary Care Provider] - Follow up as needed GLORIA MOYA MD [ACTIVE STAFF] - Follow up in 3-5 days
[2018-01-29 21:52] VITALS: BP 115/70
== END 2018-01-29 21:50 | disposition home or self-care (01) ==
LOC: ER 17:01
DX: R10.33 Periumbilical pain (principal); J45.909 Unspecified asthma, uncomplicated; Z90.49 Acquired absence of other specified parts of digestive tract; Z87.19 Personal history of other diseases of the digestive system
CPT/HCPCS: 99284; 36415; 83690; 85025; 80053; 81001; S0119

== ENCOUNTER 2019-02-03 09:06 | Emergency (ER) | payer BC ==
[2019-02-03] MEDS ORDERED: ONDANSETRON HCL INJ/PF 4 MG/2 ML SDV IV ONE (09:45)
--- NOTE | 2019-02-03 09:48 | ER Document Report ---
ED Medical Screen (RME) - General Chief Complaint: Abdominal Pain Stated Complaint: STOMACH PAIN Time Seen by Provider: 02/03/19 09:39 Primary Care Provider: LUL SOSA PA-C [Primary Care Provider] - Follow up as needed Notes: Patient is a 48-year-old female presents to the emergency department for chronic abdominal pain. Patient states "I have had pain ever since I was a little girl." States most recently she has been diagnosed with IBS and started on Linzess. Patient states the Linzess has given her too much diarrhea so she has stopped it. States she is also been taking omeprazole per her doctor's orders. Patient states she attempted to get a referral to gastroenterology but her primary care provider did not call her back which is why she presents to the emergency room. Patient presents with generalized "all over" abdominal pain and nausea. History of an appendectomy and a cholecystectomy. GENERAL: Alert, interacts well. No acute distress. ABDOMEN: Soft, Non-distended. Bowel sounds present in all 4 quadrants. Generalized tenderness all 4 quadrants. I have greeted and performed a rapid initial assessment of this patient. A comprehensive ED assessment and evaluation of the patient, analysis of test results and completion of the medical decision making process will be conducted by additional ED providers. I have specifically instructed the patient or family members with the patient to immediately return to any nursing staff should anything change in the patient's condition or with their chief complaint. This medical record was dictated with voice recognizing software. There may be grammatical, syntax errors that are unintended. TRAVEL OUTSIDE OF THE [place] IN LAST 30 DAYS: No - Related Data Allergies/Adverse Reactions: prochlorperazine edisylate [From Compazine] Allergy (Severe, Verified 01/29/18 17:03) prochlorperazine maleate [From Compazine] Allergy (Severe, Verified 01/29/18 17:03) Past Medical History Pulmonary Medical History: Reports: Hx Asthma, Hx Bronchitis, Hx Pneumonia Renal/ Medical History: Denies: Hx Peritoneal Dialysis GI Medical History: Reports: Hx Gastroesophageal Reflux Disease Past Surgical History: Reports: Hx Appendectomy, Hx Section - Immunizations Hx Diphtheria, Pertussis, Tetanus Vaccination: Yes - 07/13/2007 Physical Exam - Vital signs Vitals: Temp Pulse Resp BP Pulse Ox 97.8 F 92 20 125/73 99 02/03/19 09:13 02/03/19 09:13 02/03/19 09:13 02/03/19 09:13 02/03/19 09:13 Course - Vital Signs Vital signs: Temp Pulse Resp BP Pulse Ox 97.8 F 92 20 125/73 99 02/03/19 09:13 02/03/19 09:13 02/03/19 09:13 02/03/19 09:13 02/03/19 09:13 Doctor's Discharge - Discharge Referrals: LUL SOSA PA-C [Primary Care Provider] - Follow up as needed
[2019-02-03 10:24] LABS: ABSOLUTE EOSINOPHILS # (AUTO) 0.1 10^3/uL (0.0-0.6); ABSOLUTE MONOCYTES (AUTO) 0.3 10^3/uL (0.1-1.4); ABSOLUTE NEUT (AUTO) 3.9 10^3/uL (1.7-8.2); BASOPHILS % (AUTO) 0.5 % (0-2); EOSINOPHILS % (AUTO) 1.6 % (0-6); HEMATOCRIT 38.6 % (36.0-47.0); HEMOGLOBIN 12.7 g/dL (12.0-15.5); LYMPHOCYTES % (AUTO) 31.1 % (13-45); MEAN CORPUSCULAR HEMOGLOBIN 29.3 pg (27.0-33.4); MEAN CORPUSCULAR VOLUME 89 fl (80-97); MONOCYTES % (AUTO) 4.9 % (3-13); PLATELET COUNT 237 10^3/uL (150-450); RED BLOOD COUNT 4.34 10^6/uL (3.72-5.28); RED CELL DISTRIBUTION WIDTH 13.2 % (11.5-14.0); SEGMENTED NEUTROPHILS % (AUTO) 61.9 % (42-78); TOTAL CELLS COUNTED % (AUTO) 100 %; WHITE BLOOD COUNT 6.4 10^3/uL (4.0-10.5)
[2019-02-03 10:29] LABS: APPEARANCE,URINE CLOUDY; BILIRUBIN,URINE NEGATIVE (NEGATIVE); COLOR,URINE AMBER; GLUCOSE, URINE NEGATIVE (NEGATIVE); KETONES,URINE TRACE mg/dL (NEGATIVE); LEUKOCYTE ESTERASE,URINE TRACE (NEGATIVE); NITRITE,URINE NEGATIVE (NEGATIVE); PROTEIN,URINE 30 mg/dL (NEGATIVE); URINE SPECIFIC GRAVITY 1.028; UROBILINOGEN,URINE NEGATIVE mg/dL (<2.0)
[2019-02-03] MEDS ORDERED: KETOROLAC TROMETHAMINE INJ/PF 30 MG/1 ML SDV IV ONE (10:33)
[2019-02-03] MEDS ORDERED: NORMAL SALINE 1000 ML 1,000 ML IV ONE (10:33)
--- NOTE | 2019-02-03 10:34 | ER Document Report ---
ED General - General Chief Complaint: Abdominal Pain Stated Complaint: STOMACH PAIN Time Seen by Provider: 02/03/19 09:39 Primary Care Provider: LUL SOSA PA-C [Primary Care Provider] - Follow up as needed TRAVEL OUTSIDE OF THE [place] IN LAST 30 DAYS: No - HPI Notes: Patient is a 48-year-old female with a history of IBS, appendectomy, cholecystectomy, diverticulosis who presents complaining of abdominal pain for the past couple weeks with associated intermittent nausea. Pain does not radiate. Patient states that she has felt more constipated recently, but had a bowel movement this morning. Patient states that she will feel a knot in her upper abdomen at times as well. Patient states that most of her pain is to her epigastrium, but can be generalized. Patient states that she was seen by her family doctor last week who placed her on omeprazole, but that has not helped. Patient is not currently taking her Linzess medication as it caused increased diarrhea. She has not been seen by straight truck driver recently. Patient states that she has otherwise had chronic issues with abdominal pain on occasion since she was a child. Denies any headache, fever, head injury, neck pain, URI, sore throat, chest pain, palpitations, syncope, cough, shortness of breath, wheeze, dyspnea, vomiting, urinary retention, dysuria, hematuria, back pain, or rash. - Related Data Allergies/Adverse Reactions: prochlorperazine edisylate [From Compazine] Allergy (Severe, Verified 01/29/18 17:03) prochlorperazine maleate [From Compazine] Allergy (Severe, Verified 01/29/18 17:03) Past Medical History - Social History Smoking Status: Never Smoker Chew tobacco use (# tins/day): No Frequency of alcohol use: None Drug Abuse: None Family History: Reviewed & Not Pertinent Patient has suicidal ideation: No Patient has homicidal ideation: No Pulmonary Medical History: Reports: Hx Asthma, Hx Bronchitis, Hx Pneumonia Renal/ Medical History: Denies: Hx Peritoneal Dialysis GI Medical History: Reports: Hx Gastroesophageal Reflux Disease Past Surgical History: Reports: Hx Appendectomy, Hx Section, Hx Cholecystectomy - Immunizations Hx Diphtheria, Pertussis, Tetanus Vaccination: Yes - 07/13/2007 Review of Systems - Review of Systems -: Yes All other systems reviewed and negative Physical Exam - Vital signs Vitals: Temp Pulse Resp BP Pulse Ox 97.8 F 92 20 125/73 99 02/03/19 09:13 02/03/19 09:13 02/03/19 09:13 02/03/19 09:13 02/03/19 09:13 - Notes Notes: PHYSICAL EXAMINATION: GENERAL: Well-appearing, well-nourished and in no acute distress. HEAD: Atraumatic, normocephalic. EYES: Pupils equal round and reactive to light, extraocular movements intact, sclera anicteric, conjunctiva are normal. ENT: Nares patent and without discharge. oropharynx clear without exudates. No tonsilar hypertrophy or erythema. Moist mucous membranes. NECK: Normal range of motion, supple without lymphadenopathy LUNGS: Breath sounds clear to auscultation bilaterally and equal. No wheezes rales or rhonchi. HEART: Regular rate and rhythm without murmurs, rubs, gallops. ABDOMEN: Soft, nondistended abdomen. No guarding, no rebound. Normal bowel sounds present. No CVA tenderness bilaterally. + tenderness to the epigastrum. Musculoskeletal: FROM to passive/active. Strength 5+/5. Extremities: No cyanosis, clubbing, or edema b/l. Peripheral pulses 2+. Capil pedro refill less than 3 seconds. NEUROLOGICAL: Normal speech, normal gait. PSYCH: Normal mood, normal affect. SKIN: Warm, Dry, normal turgor, no rashes or lesions noted. Course - Re-evaluation Re-evalutation: 02/03/19 14:21 Patient is an afebrile, well-hydrated, 48-year-old female who presents with upper abdominal pain, unspecified. Vitals are acceptable without severe tachycardia, tachypnea, or hypoxia. PE is otherwise unremarkable. Patient is nontoxic-appearing and is tolerating p.o. Without difficulties. Patient's abdomen is now soft and nontender. Patient was given fluids, Toradol, Zofran. She is also given a GI cocktail which improved her symptoms. Lab work was unremarkable. CT scan of the abdomen/pelvis was unremarkable as well. No further work-up warranted at this time. Low suspicion/risk for acute appendicitis, bowel obstruction, acute cholecystitis, acute cholangitis, perforated diverticulitis, incarcerated hernia, pancreatitis, perforated ulcer, peritonitis, sepsis, pelvic inflammatory disease, ectopic , tubo- ovarian abscess, ovarian torsion, or other systemic emergent condition at this time. Patient is aware that her condition can change from initial presentation and she needs to monitor symptoms closely and seek medical attention if any acute changes. Rx for carafate to go along with her omeprazole. Conservative measures otherwise for symptoms. Recheck with your PCM in 2-3 days. Consider consult with a straight truck driver. Return to the ED with any worsening/concern ing symptoms otherwise as reviewed in discharge. Patient is in agreement. - Vital Signs Vital signs: Temp Pulse Resp BP Pulse Ox 98.5 F 72 16 128/76 H 100 02/03/19 13:48 02/03/19 13:48 02/03/19 13:48 02/03/19 13:48 02/03/19 13:48 - Laboratory Result Diagrams: 02/03/19 10:10 02/03/19 10:10 Laboratory results interpreted by me: 02/03/19 02/03/19 10:10 10:10 Glucose 119 H Urine Protein 30 H Urine Ketones TRACE H Ur Leukocyte Esterase TRACE H Urine Ascorbic Acid 40 H Discharge - Discharge Clinical Impression: Upper abdominal pain, unspecified Condition: Stable Disposition: HOME, SELF-CARE Instructions: Abdominal Pain ([facility]) Additional Instructions: Maintain adequate fluid and food intake [place] diet ([employer] Bananas, rice, apples, toast, etc Zofran as needed tylenol if needed Monitor for any worsening symptoms Make sure you are staying hydrated enough to urinate and have normal BM's Recheck with your PCM in 2-3 days Consider consult with Gastroenterology for ongoing/worsening symptoms Return to the ED with any worsening symptoms and/or development of fever, headache, chest pain, palpitations, syncope, shortness of breath, trouble breathing, abdominal pain, n/v/d, blood in stool/urine, weakness, or other worsening symptoms that are concerning to you. Prescriptions: Ondansetron [Zofran Odt 4 mg Tablet] 1 - 2 tab PO Q4H PRN #15 tab.rapdis PRN Reason: For Nausea/Vomiting Sucralfate [Carafate] 1 gm PO BID #100 ml Forms: Elevated Blood Pressure Referrals: LUL SOSA PA-C [Primary Care Provider] - Follow up as needed CHIOMA OZUNA MD [ACTIVE STAFF] - Follow up as needed MU CENTENO MD [ACTIVE STAFF] - Follow up as needed
[2019-02-03 10:50] LABS: ALANINE AMINOTRANSFERASE 11 U/L (9-52); ALBUMIN 3.9 g/dL (3.5-5.0); ALKALINE PHOSPHATASE 110 U/L (38-126); ANION GAP 9 (5-19); ASPARTATE AMINO TRANSFERASE 21 U/L (14-36); BILIRUBIN,DIRECT 0.2 mg/dL (0.0-0.4); BILIRUBIN,TOTAL 0.3 mg/dL (0.2-1.3); BLOOD UREA NITROGEN 10 mg/dL (7-20); CALCIUM 8.8 mg/dL (8.4-10.2); CARBON DIOXIDE 27 mmol/L (22-30); CHLORIDE 107 mmol/L (98-107); GLUCOSE 119 mg/dL (75-110); POTASSIUM 3.9 mmol/L (3.6-5.0); TOTAL PROTEIN 7.4 g/dL (6.3-8.2)
[2019-02-03 13:52] VITALS: BP 128/76
--- NOTE | 2019-02-03 14:07 | RADIOLOGY REPORT (SQ) ---
EXAM DESCRIPTION: CT ABD/PELVIS WITH IV ORAL COMPLETED DATE/TIME: 02/03/2019 1:26 pm REASON FOR STUDY: Abd pain COMPARISON: 08/13/2008. TECHNIQUE: CT scan of the abdomen and pelvis performed with intravenous and oral contrast using bacilio yaquelin scanning technique with dynamic intravenous contrast injection. Images reviewed with lung, soft t issue, and bone windows. Reconstructed coronal and sagittal MPR images reviewed. Delayed images for e valuation of the urinary system also acquired. All images stored on PACS. All CT scanners at this facility use dose modulation, iterative reconstruction, and/or weight based d osing when appropriate to reduce radiation dose to as low as reasonably achievable (ALARA). [facility]: Dose Right [facility]: CareDose [facility]: Dose Right [facility]: Teradose 4D [facility]: Nasty Gal CONTRAST TYPE AND DOSE: contrast/concentration: Isovue mg/ml; Total Contrast Delivered: 100.0 ml; T otal Saline Delivered: 49.8 ml RENAL FUNCTION: BUN 10 creatinine 0.67. RADIATION DOSE: CT Rad equipment meets quality standard of care and radiation dose reduction techniq ues were employed. CTDIvol: 12.1 - 16.5 mGy. DLP: 1554 mGy-cm.. LIMITATIONS: None. FINDINGS: LOWER CHEST: No significant findings. No nodules or infiltrates. LIVER: Normal size. No masses. No dilated ducts. SPLEEN: Normal size. No focal lesions. PANCREAS: No masses. No significant calcifications. No adjacent inflammation or peripancreatic fluid collections. Pancreatic duct not dilated. GALLBLADDER: Surgically absent. ADRENAL GLANDS: No significant masses or asymmetry. RIGHT KIDNEY AND URETER: No solid masses. No significant calcification. No hydronephrosis or hydroure ter. LEFT KIDNEY AND URETER: No solid masses. No significant calcification. No hydronephrosis or hydrouret er. AORTA AND VESSELS: No aneurysm. No dissection. Renal arteries, SMA, celiac without stenosis. RETROPERITONEUM: No retroperitoneal adenopathy, hemorrhage or masses. BOWEL AND PERITONEAL CAVITY: No obstruction. No visualized masses. No free fluid. No inflammatory ch anges or thickening of bowel wall. APPENDIX: Surgically absent. PELVIS: No significant masses. Normal bladder. No free fluid. ABDOMINAL WALL: No masses. No hernias. BONES: No significant or acute findings. OTHER: No other significant finding. IMPRESSION: NO SIGNIFICANT OR ACUTE FINDINGS IN THE ABDOMEN OR PELVIS. TECHNICAL DOCUMENTATION: JOB ID: [id number] Quality ID # [id number]: Final reports with documentation of one or more dose reduction techniques (e.g., Au tomated exposure control, adjustment of the mA and/or kV according to patient size, use of iterative reconstruction technique) 2010 [employer]- All Rights Reserved Reading location - IP/workstation name: [facility]
[2019-02-03] MEDS ORDERED: METOCLOPRAMIDE HCL ORAL SOLN 10 MG/10 ML UDCUP PO ONE (14:21)
[2019-02-03] MEDS ORDERED: LIDOCAINE 2% VISCOUS SOLN 20 ML UDCUP PO ONE (14:21)
[2019-02-03] MEDS ORDERED: MAG HYDROX/AL HYDROX/SIMETH SUSP 30 ML UDCUP PO ONE (14:21)
== END 2019-02-03 14:47 | disposition home or self-care (01) ==
LOC: ER 09:06
DX: R10.10 Upper abdominal pain, unspecified (principal); Z90.49 Acquired absence of other specified parts of digestive tract
CPT/HCPCS: 99284; 96361; 96374; 96375; 36415; 83690; 84703; 85025; 80053; 81001; 74177; J3490; J1885; J2405; J7030